=== PATIENT | male | born 1960 | race Caucasian/White ===

== ENCOUNTER 2019-07-01 18:30 | Inpatient (IN) | payer OTHER ==
[~2019-07-01] VITALS: Ht 177.8 cm; Wt 89.8 kg
[2019-07-01 17:45] VITALS: BP 127/74
--- NOTE | 2019-07-01 18:40 | NUR ---
[id number], BEE STING At 1500. EPI 0.3 SQ, BENADRYL 50, SOLU MEDROL 125 GIVEN IN THE FIELD. DENIES SOB. ON ROOM AIR, CONNECTED TO THE MONITOR AND PULSE OX. KEPT COMFORTABLE, WILL CONTINUE TO MONITOR ACCORDINGLY.
[2019-07-01] MEDS ORDERED: FAMOTIDINE (20 MG) 20 MG TABLET ONE ×2 (18:57→18:59)
[2019-07-01] MEDS ORDERED: FAMOTIDINE (20 MG) 20 MG TABLET PO ONE (19:00)
[2019-07-01] MEDS ORDERED: IPRATROPIUM NEB FS 0.5 MG/2.5 ML AMPUL.NEB NEB ONE (19:00)
[2019-07-01] MEDS ORDERED: IV NS 0.9% 1,000 ML BAG IV ONE (19:00)
[2019-07-01] MEDS ORDERED: ALBUTEROL FS 2.5 MG/3 ML VIAL.NEB NEB ONE (19:00)
[2019-07-01] MEDS ORDERED: ALBUTEROL FS 2.5 MG/3 ML VIAL.NEB ONE (19:07)
[2019-07-01] MEDS ORDERED: IPRATROPIUM NEB FS 0.5 MG/2.5 ML AMPUL.NEB ONE (19:07)
--- NOTE | 2019-07-01 19:18 | NUR ---
endorsed to next shift RN for amber.
--- NOTE | 2019-07-01 19:19 | NUR ---
endorsed to next shift RN for amber.
[2019-07-01] MEDS ORDERED: diphenhydrAMINE HCL 50 MG/ML VIAL ONE (19:29)
[2019-07-01] MEDS ORDERED: EPINEPHRINE (1:1000) MDV 30 MG/30ML VIAL SUBCUT ONE (19:30)
[2019-07-01] MEDS ORDERED: diphenhydrAMINE HCL 50 MG/ML VIAL IV ONE (19:30)
[2019-07-01] MEDS ORDERED: EPINEPHRINE (1:1000) 1 MG/ML AMPUL ONE (19:31)
--- NOTE | 2019-07-01 19:58 | NUR ---
PHLEB AT BEDSIDE FOR BLOOD DRAW
[2019-07-01] MEDS ORDERED: EPINEPHRINE (1:1000) 1 MG/ML AMPUL IM ONE (20:00)
[2019-07-01] MEDS ORDERED: EPINEPHRINE (1:1000) 1 MG/ML AMPUL SUBCUT ONE (20:00)
[2019-07-01 20:07] LABS: BASOPHILS % (AUTO) 0.2 % (0.0-2.0); EOSINOPHILS % (AUTO) 0.3 % (0.0-6.0); HEMATOCRIT 45 % (39-51); HEMOGLOBIN 15.2 g/dL (13.5-17.5); LYMPHOCYTES # (AUTO) 1.9 /CMM (0.8-4.8); MEAN CORPUSCULAR HGB CONC 34 g/dl (31.0-36.0); MEAN CORPUSCULAR VOLUME 96 fL (80-96); MONOCYTES # (AUTO) 0.8 /CMM (0.1-1.30); MONOCYTES % (AUTO) 5.9 % (2.0-12.0); NEUTROPHILS # (AUTO) 10.1 /CMM (1.8-8.9); NEUTROPHILS % (AUTO) 78.6 % (43.0-81.0); PLATELET COUNT (AUTO) 214 /CMM (150-450); RED BLOOD CELL COUNT(AUTO) 4.71 MIL/uL (4.5-6.0); WHITE BLOOD COUNT (AUTO) 12.8 K/uL (4.3-11.0)
[2019-07-01 20:16] LABS: POTASSIUM 3.4 mmol/L (3.5-5.1)
[2019-07-01 20:17] LABS: CALCIUM, SERUM 8.2 mg/dL (8.5-10.1); CREATININE 1.1 mg/dL (0.6-1.3)
--- NOTE | 2019-07-01 20:35 | NUR ---
CALLED NURSING SUP. FOR MS BED
--- NOTE | 2019-07-01 20:44 | NUR ---
Patient is resting comfortably in bed with FAMILY AT BEDSIDE. Easily aroused. VSS.
--- NOTE | 2019-07-01 20:55 | NUR ---
BED ASSIGNMENT 307-2
[2019-07-01] MEDS ORDERED: HYDROCODONE/APAP 5/325MG 1 EACH TABLET PO PRN (21:00)
[2019-07-01] MEDS ORDERED: IV NS 0.9% 1,000 ML IV PRN (21:00)
[2019-07-01] MEDS ORDERED: ONDANSETRON HCL/PF 4 MG/2 ML VIAL IVP PRN (21:00)
[2019-07-01] MEDS ORDERED: Z GUARD REMEDY 2 OZ OINT TP PRN (21:00)
[2019-07-01] MEDS ORDERED: ACETAMINOPHEN 325 MG TABLET PO PRN (21:00)
[2019-07-01] MEDS ORDERED: ZOLPIDEM TARTRATE 5 MG TABLET PO PRN (21:00)
[2019-07-01] MEDS ORDERED: MAG HYDROX/AL HYDROX/SIMETH 30 ML UDC PO PRN (21:00)
[2019-07-01] MEDS ORDERED: POTASSIUM CHLORIDE 20 MEQ TAB.PRT.SR PO ONE (21:00)
--- NOTE | 2019-07-01 21:00 | NUR ---
REPORT GIVEN TO JOSE ALFREDO MOSER FOR MALYIN
[2019-07-01] MEDS: FAMOTIDINE/PF INJ 20 MG/2 ML VIAL IV SCH (21:34)
--- NOTE | 2019-07-01 21:40 | NUR ---
RN MS ADMITTING NOTES RECEIVED PT FROM ER, AWAKE ALERT ORIENTED X4, BREATHING EVEN AND UNLABORED, AMBULATORY. IV ACCESS ON THE L AC 18G. BELONGINGS LIST COMPLETED. BED IN LOWEST LOCKED POSITION, CALL LIGHT WITHIN REACH AT ALL TIME, WILL CONTINUE TO MONITOR FREQUENTLY
[2019-07-01] MEDS ORDERED: NEVI200T PO (23:34)
[2019-07-01] MEDS ORDERED: WARF10TA22 PO ×2 (23:34)
[2019-07-01] MEDS: methylPREDNISolone SOD SUCC 40 MG/ML VIAL IV SCH (23:43)
[2019-07-02] MEDS ORDERED: diphenhydrAMINE HCL 50 MG/ML VIAL IV PRN (01:00)
[2019-07-02] MEDS: methylPREDNISolone SOD SUCC 40 MG/ML VIAL IV SCH (05:49)
--- NOTE | 2019-07-02 06:03 | NUR ---
RN MS CLOSING NOTES PT REMAINS IN BED, AWAKE ALERT ORIENTED X4, BREATHING EVEN AND UNLABORED. IN NO APPARENT PAIN OR DISCOMFORT AT THIS TIME, 3RD DIGIT EDEMA REDUCED SIGNIFICANTLY, NO REDNESS NOTED. IV ACCESS ON THE L AC 18G WITH NS @75ML/HR. BED IN LOWEST LOCKED POSITION, CALL LIGHT WITHIN REACH AT ALL TIME, WILL ENDORSE TO DAY NURSE FOR MAYLIN
[2019-07-02 06:33] LABS: BASOPHILS % (AUTO) 0.1 % (0.0-2.0); HEMATOCRIT 40 % (39-51); HEMOGLOBIN 13.6 g/dL (13.5-17.5); LYMPHOCYTES # (AUTO) 0.7 /CMM (0.8-4.8); LYMPHOCYTES % (AUTO) 9.7 % (20.0-44.0); MEAN CORPUSCULAR HGB CONC 34 g/dl (31.0-36.0); MEAN CORPUSCULAR VOLUME 95 fL (80-96); MONOCYTES # (AUTO) 0.1 /CMM (0.1-1.30); NEUTROPHILS # (AUTO) 6.2 /CMM (1.8-8.9); NEUTROPHILS % (AUTO) 89.2 % (43.0-81.0); PLATELET COUNT (AUTO) 202 /CMM (150-450); RED BLOOD CELL COUNT(AUTO) 4.25 MIL/uL (4.5-6.0); WHITE BLOOD COUNT (AUTO) 6.9 K/uL (4.3-11.0)
[2019-07-02 06:46] LABS: CALCIUM, SERUM 8.2 mg/dL (8.5-10.1); CREATININE 0.9 mg/dL (0.6-1.3); MAGNESIUM 1.9 mg/dL (1.8-2.4); POTASSIUM 4.5 mmol/L (3.5-5.1)
--- NOTE | 2019-07-02 07:30 | NUR ---
MS/RN Patient received Patient received from shift production supervisor. A/O X4, vital signs stable, no shortness of breath, no fever noted. Swelling to left side of face and right hand now resolved. Denies any pain or discomfort. IVF infusing as ordered, no signs of infiltration. Call light within reach, will continue to monitor and ensure safety.
--- NOTE | 2019-07-02 07:30 | NUR ---
MS/RN Medications Morning medications administered as ordered.
[2019-07-02 08:00] VITALS: BP 127/77
[2019-07-02] MEDS: FAMOTIDINE/PF INJ 20 MG/2 ML VIAL IV SCH (08:12)
[2019-07-02] MEDS ORDERED: NEVIRAPINE 200 MG TABLET PO SCH (09:00)
--- NOTE | 2019-07-02 09:01 | NUR ---
MS/RN S/B Dr Schofield Seen by Dr Schofield - patient to be discharged to home today with follow up in 7-10 days with primary care doctor. Prescriptions to be sent electronically to preferred pharmacy.
[2019-07-02] MEDS ORDERED: METH4TAB17 PO (10:17)
[2019-07-02] MEDS ORDERED: EPIN0.3A4 IM (10:17)
[2019-07-02] MEDS ORDERED: DIPH25TA25 PO (10:17)
--- NOTE | 2019-07-02 11:21 | NUR ---
MS/desktop technician Patient discharged to home in stable condition. Heplock and name bands. Provided with copies of exit care and medical record. Prescription sent electronically to preferred pharmacy. Educated as to what each new medication was for and possible side effects. Hand out provided on eppy pen use. All personal belongings returned to patient and signed for on belongings list. Time allowed for all questions and concerns to be addressed. Escorted to main lobby by CHILD DEVELOPMENT CONSULTANT, transport provided by .
[2019-07-02] MEDS ORDERED: K PHOS NEUTRAL 250 MG TABLET PO ONE (12:30)
[2019-07-02] MEDS ORDERED: WARFARIN SODIUM 5 MG TABLET PO SCH (17:00)
[2019-07-03] MEDS ORDERED: WARFARIN SODIUM 5 MG TABLET PO SCH (17:00)
== END 2019-07-02 11:40 | disposition home or self-care (01) | DRG 916 ==
LOC: ER 18:34 → TELE 20:55 → MED 22:30
PROVIDERS: ADMIT Nurse Practitioner Acute Care; ATTEND Student in an Organized Health Care Education/Training Program
DX: T78.2XXA Anaphylactic shock, unspecified, initial encounter (principal); D69.0 Allergic purpura; D72.829 Elevated white blood cell count, unspecified; E86.0 Dehydration; Z86.718 Personal history of other venous thrombosis and embolism; T63.441A Toxic effect of venom of bees, accidental (unintentional), initial encounter; Z79.01 Long term (current) use of anticoagulants; E87.6 Hypokalemia; E83.51 Hypocalcemia; Z86.711 Personal history of pulmonary embolism; L50.9 Urticaria, unspecified; R79.89 Other specified abnormal findings of blood chemistry
CPT/HCPCS: 36415; 80048-TC; 80061-TC; 83735-TC; 84100-TC; 85025-TC; 87081-TC; G0378; J0171; J1200; J2920; J3490; J7030